=== PATIENT | male | born 1950 | race Caucasian/White ===

== ENCOUNTER 2020-09-24 09:42 | Emergency (ER) | payer OTHER ==
[~2020-09-24] VITALS: Ht 167.6 cm; Wt 117.5 kg
[2020-09-24 09:48] VITALS: BP_SYST 174
[2020-09-24] MEDS ORDERED: AMPICILLIN SODIUM/SULBACTAM NA 3 GM in NS 100 ML IV ONE (11:45)
[2020-09-24 12:35] LABS: BASOPHILS # (AUTO) 0.1 K/uL (0.0-0.2); BASOPHILS % (AUTO) 0.8 % (0.0-2.0); EOSINOPHILS % (AUTO) 0.6 % (0.0-4.0); HEMATOCRIT 41.6 % (36-54); LYMPHOCYTES # (AUTO) 1.2 K/uL (1.0-5.5); LYMPHOCYTES % (AUTO) 14.6 % (20.5-51.5); MEAN CORPUSCULAR HEMOGLOBIN 30 pg (27-31); MEAN CORPUSCULAR HGB CONC 34 % (32-36); MEAN CORPUSCULAR VOLUME 91 fL (79.0-98.0); MONOCYTES # (AUTO) 0.7 K/uL (0.0-1.0); MONOCYTES % (AUTO) 8.6 % (1.7-9.3); NEUTROPHILS # (AUTO) 6.3 K/uL (1.8-7.7); NEUTROPHILS % (AUTO) 75.4 % (40.0-70.0); PLATELET COUNT (AUTO) 267 K/uL (130-430); RED BLOOD CELL COUNT(AUTO) 4.59 MIL/uL (4.2-6.2); RED CELL DISTRIBUTION WIDTH 14.8 % (9.0-15.0); WHITE BLOOD COUNT (AUTO) 8.3 K/uL (4.8-10.8)
[2020-09-24 12:48] LABS: CALCIUM 8.3 mg/dL (8.4-11.0); CREATININE 0.71 mg/dL (0.55-1.30); POTASSIUM 4.1 mmol/L (3.5-5.1)
[2020-09-24 12:53] LABS: TOTAL BILIRUBIN 0.7 mg/dL (0.0-1.0)
[2020-09-24 12:54] LABS: INR 0.9 (0.80-1.20); PROTHROMBIN TIME 9.6 SECS (9.5-12.5)
[2020-09-24] MEDS ORDERED: TRAM50TA PO (13:08)
[2020-09-24] MEDS ORDERED: AMOX-423 PO (13:08)
[2020-09-24] MEDS ORDERED: DEXAMETHASONE SOD PHOSPHATE 4 MG/ML VIAL IVP ONE (13:15)
[2020-09-24] MEDS ORDERED: AMPICILLIN SODIUM/SULBACTAM NA 3 GM VIAL ONE (13:32)
[2020-09-24 16:25] VITALS: BP_SYST 174
== END 2020-09-24 16:25 | disposition home or self-care (01) ==
LOC: SED 09:42
DX: K04.7 Periapical abscess without sinus (principal); K02.9 Dental caries, unspecified; I10 Essential (primary) hypertension; E11.9 Type 2 diabetes mellitus without complications; Z79.899 Other long term (current) drug therapy
CPT/HCPCS: 36415; 70150; 80053; 83605; 85025; 85610; 85730; 87040; 96365; 96375; 99284; J0295; J1100